=== PATIENT | male | born 1975 | race Caucasian/White ===

== ENCOUNTER → 2019-10-24 14:21 | Outpatient (CLI) | payer OTHER, SELFPAY ==
--- NOTE | ~2019-10-24 | MR_ITS ---
EXAMINATION: MR cervical spine wo con EXAM DATE: 10/24/2019 15:02 INDICATION: Bilateral arm pain. Neck pain. TECHNIQUE: Multi-sequential, multiplanar MR images of the cervical spine were obtained without contra st. Axial T2, axial T2 MERGE sequence. Sagittal T1, T2, T2 fat saturation images also obtained. Com parison is made to prior examination from 10/09/2011. FINDINGS: The vertebral bodies are aligned in the AP dimension. The spinal cord signal intensity and intrinsic morphology is normal. Cervicomedullary junction is normal in appearance. There are no susp icious marrow signal abnormalities. Paraspinal soft tissue is unremarkable. Level by level evaluation: C2-C3: Disc does not extend beyond the endplate margin. Uncovertebral joint arthropathy: Mild bilateral. Facet joint arthropathy: Mild right. Neural foraminal stenosis: No stenosis. Central canal stenosis: No stenosis. C3-C4: Disc does not extend beyond the endplate margin. Uncovertebral joint arthropathy: Mild bilateral. Facet joint arthropathy: Mild bilateral. Neural foraminal stenosis: No stenosis. Central canal stenosis: No stenosis. C4-C5: Disc does not extend beyond the endplate margin. Uncovertebral joint arthropathy: Mild bilateral. Facet joint arthropathy: Mild bilateral. Neural foraminal stenosis: No stenosis. Central canal stenosis: No stenosis. C5-C6: There is a mild diffuse disc bulge. Uncovertebral joint arthropathy: Mild to moderate bilateral. Facet joint arthropathy: Mild bilateral. Neural foraminal stenosis: Mild to moderate right, mild left. Central canal stenosis: Mild. C6-C7: There is a mild diffuse disc bulge. Uncovertebral joint arthropathy: Moderate right, mild to moderate left. Facet joint arthropathy: Mild bilateral. Neural foraminal stenosis: Moderate right, mild to moderate left. Central canal stenosis: Mild. C7-T1: Disc does not extend beyond the endplate margin. Uncovertebral joint arthropathy: None. Facet joint arthropathy: Mild bilateral. Neural foraminal stenosis: No stenosis. Central canal stenosis: No stenosis. Compared to 2012, development of mild loss of the disc heights at C5-6 and C6-7, but the bulges have decreased in size compared to that time. IMPRESSION: Mild to moderate cervical spondylosis with the right C5-6 and 6-7 neural foramen most ok rowed on exam. Reviewed, dictated and finalized at location A. IMPRESSION: Mild to moderate cervical spondylosis with the right C5-6 and 6-7 n eural foramen most narrowed on exam.
== END ==
PROVIDERS: Visit Provider Pain Medicine Interventional Pain Medicine
DX: M47.812 Spondylosis without myelopathy or radiculopathy, cervical region (principal); M54.12 Radiculopathy, cervical region; G89.4 Chronic pain syndrome
CPT/HCPCS: 72141

== ENCOUNTER → 2019-11-26 15:15 | Outpatient (CLI) | payer OTHER, SELFPAY ==
--- NOTE | ~2019-11-26 | US_ITS ---
EXAMINATION: US thyroid DATE: 11/26/2019 15:41 INDICATION: Multiple thyroid nodules TECHNIQUE: Multiple ultrasound images of the thyroid were obtained. COMPARISON: 05/29/2018 FINDINGS: The right thyroid lobe measures 6.4 x 1.6 x 20.6 cm. The left thyroid lobe measures 7.0 x 1.5 x 2.6 cm. Wider than tall solid hypoechoic nodule with smooth margins and without echogenic foci in the in ferior left thyroid lobe measuring 2.3 x 1.4 x 0.7 cm (TI-RADS 4, moderately suspicious , FNA if >=1. 5 cm, annual followup is >1 cm). Similar ultrasound features of a 8 x 7 x 5 mm There is nodule in the inferior right thyroid lobe. 1.4 x 1.1 x 0.9 cm wider than tall solid isoechoic nodule with smooth m argins and without echogenic foci in the inferior right thyroid lobe (TI-RADS 3, mildly suspicious , FNA if >=2.5 cm, annual followup is >1.5 cm). Mildly coarsened echotexture throughout the thyroid. IMPRESSION: 1. Multinodular goiter. Recommend ultrasound-guided biopsy of the 2.3 cm TI RADS 4 nodules in the inf erior left thyroid. Reviewed, dictated and finalized at location B. IMPRESSION: 1. Multinodular goiter. Recommend ultrasound-guided biopsy of the 2.3 cm TI RAD S 4 nodules in the inferior left thyroid.
== END ==
PROVIDERS: PCP Family Medicine
DX: E04.2 Nontoxic multinodular goiter (principal)
CPT/HCPCS: 76536

== ENCOUNTER 2020-01-01 08:52 | Outpatient (CLI) | payer OTHER, SELFPAY ==
--- NOTE | ~2020-01-01 | US_ITS ---
EXAMINATION: US FNA w image guidance DATE: 01/01/2020 10:16 INDICATION: Left thyroid nodule. TECHNIQUE: The procedure and its benefits, risks, and benefits were discussed with the patient. Risks specifical ly discussed included bleeding. The patient verbalized understanding of the risks and agreed to proce ed. The neck was prepped and draped in the usual sterile manner. 1% lidocaine was used for local ane sthesia. 5 passes were made with a 25G needle into the lesion. Appropriate needle location was docu mented with continuous sonographic guidance. There were no immediate complications. The patient unde rstood to call the ordering physician for results after a week and a half and verbalized that underst anding. FINDINGS: Grayscale ultrasound images demonstrate needles advanced into a 2.3 cm hypoechoic nodule in left thyr oid lobe for biopsy. IMPRESSION: 1. Ultrasound-guided fine needle aspiration of a left thyroid nodule. Reviewed, dictated and finalized at location A. WORKER
== END 2020-01-01 08:53 | disposition home or self-care (01) ==
PROVIDERS: PCP Family Medicine; Visit Provider Internal Medicine Endocrinology, Diabetes & Metabolism
DX: E04.2 Nontoxic multinodular goiter (principal)
CPT/HCPCS: 10005; 88173; 88305

== ENCOUNTER → 2021-04-20 14:09 | Outpatient (CLI) | payer OTHER, SELFPAY ==
--- NOTE | ~2021-04-20 | XR_ITS ---
EXAMINATION:XR cervical spine 4-5V DATE: 04/20/2021 14:59 INDICATION: Cervical radiculopathy TECHNIQUE: AP, lateral, lateral swimmers and odontoid views of the cervical spine are provided. COMPARISON: 03/04/2016 FINDINGS: Alignment is normal. The odontoid is intact. No fracture is identified. The vertebral body heights are normal. There is mild loss of intervertebral disc space height at C5-6. There is moderate facet osteoarthritis at C7-T1. Mild multilevel uncovertebral joint osteoarthritis is noted. Preverte bral soft tissues are normal. IMPRESSION: 1. Mild cervical spondylosis without acute findings or significant interval change. Reviewed, dictated and finalized at location B. ERY TECHNICIAN IMPRESSION: 1. Mild cervical spondylosis without acute findings or significant interval merary e.
== END ==
PROVIDERS: Visit Provider Pain Medicine Interventional Pain Medicine
DX: M54.12 Radiculopathy, cervical region (principal); M43.02 Spondylolysis, cervical region
CPT/HCPCS: 72050

== ENCOUNTER → 2022-07-20 11:56 | Outpatient (CLI) | payer OTHER, SELFPAY ==
--- NOTE | ~2022-07-20 | XR_ITS ---
Cervical Spine: AP, lateral, oblique, open-mouth views Clinical History: Pain Findings: The normal lordotic curve is maintained. The vertebral bodies and posterior elements appea r intact. The intervertebral disc spaces are well maintained. Probable mild bilateral neural foramin al narrowing at C5-C6. Pre-vertebral soft tissues are unremarkable. Impression: Probable mild bilateral neural foraminal narrowing at C5-C6. Reviewed, dictated and finalized at [facility]. Impression: Probable mild bilateral neural foraminal narrowing at C5-C6.
== END ==
PROVIDERS: PCP Family Medicine; Visit Provider Pain Medicine Interventional Pain Medicine
DX: M54.12 Radiculopathy, cervical region (principal); M50.220 Other cervical disc displacement, mid-cervical region, unspecified level; G89.4 Chronic pain syndrome; Z13.89 Encounter for screening for other disorder; Z51.81 Encounter for therapeutic drug level monitoring
CPT/HCPCS: 72050

== ENCOUNTER 2023-08-11 12:26 | Outpatient (CLI) | payer OTHER, SELFPAY ==
--- NOTE | ~2023-08-11 | XR_ITS ---
XR cervical spine 4-5V Ordering provider: Crow Layne MD History: . No recent injury, neck pain with right arm pain . Comparison: July 20, 2022 FINDINGS: VERTEBRAL BODIES: Normal height and alignment. No visible fracture or subluxation. The dens is intact . DISK SPACES: Narrowing of the disc C5-C6. PARASPINOUS SOFT TISSUES: No prevertebral soft tissue swelling. IMPRESSION: No acute osseous abnormality cervical spine. Degenerative disc disease at the level of C5-C6. Reviewed, dictated and finalized at location A.
== END 2023-08-11 12:27 ==
PROVIDERS: PCP Pain Medicine Interventional Pain Medicine; Visit Provider Pain Medicine Interventional Pain Medicine
DX: M54.12 Radiculopathy, cervical region (principal); M50.220 Other cervical disc displacement, mid-cervical region, unspecified level; M54.17 Radiculopathy, lumbosacral region; Z13.89 Encounter for screening for other disorder; M50.322 Other cervical disc degeneration at C5-C6 level
CPT/HCPCS: 72050

== ENCOUNTER 2024-12-17 14:37 | Outpatient (CLI) | payer OTHER, SELFPAY ==
--- NOTE | ~2024-12-17 | XR_ITS ---
XR_[id number]_CR 12/17/2024 15:11 Indication: Cervical radiculopathy Procedure: 3 views cervical spine Comparison: 08/11/2023 Findings: Normal cervical alignment. Vertebral body heights are maintained. No fracture or traumatic malalignment. There is disc narrowing at C5-6. There is mild multilevel uncinate hypertrophy. Lung apices are normal. Odontoid process is normal. No prevertebral soft tissue swelling. No evidence for perched facet. Spinous processes are normal. Impression: 1: Mild cervical spondylosis. Reviewed, dictated and finalized at location O. LOAD DISPATCHER Impression: 1: Mild cervical spondylosis.
--- NOTE | ~2024-12-17 | XR_ITS ---
EXAM/PROCEDURE: XR thoracic spine 3V HISTORY: Thoracic radiculopathy COMPARISON(S): None. TECHNIQUE: 3 views were obtained. FINDINGS: Vertebral bodies: The height is well maintained. The upper segments are not well seen on the lateral/swimmer's view. Alignment: AP: Normal. Lateral: Normal. IMPRESSION: No acute findings. Reviewed, dictated and finalized at location A. INSERTER REGULATOR IMPRESSION: No acute findings.
--- NOTE | ~2024-12-17 | XR_ITS ---
XR lumbar spine 2-3V Indication: Lumbar radiculopathy Comparison: None Findings: The vertebral heights are intact. No fracture or subluxation. The disc heights are intact. Soft tissues unremarkable Impression: No acute abnormality. Reviewed, dictated and finalized at location P. LOGIST Impression: No acute abnormality.
== END 2024-12-17 14:38 | disposition home or self-care (01) ==
LOC: MICIMG 14:40
PROVIDERS: PCP Family Medicine; Visit Provider Pain Medicine Interventional Pain Medicine
DX: M50.220 Other cervical disc displacement, mid-cervical region, unspecified level (principal); M47.22 Other spondylosis with radiculopathy, cervical region
CPT/HCPCS: 72040; 72072; 72100